=== PATIENT | male | born 1950 | race Two or more races ===

== ENCOUNTER 2024-02-07 11:51 | Emergency (ER) | payer MEDICARE, OTHER ==
[~2024-02-07] VITALS: Ht 162.6 cm; Wt 78.3 kg
[~2024-02-07 11:51] MED LIST: Atorvastatin Calcium PO; Pantoprazole Sodium Sesquihydr PO; TAMS-35 PO
[2024-02-07 13:16] VITALS: BP 159/92; PULSE 77; RESP 16; TEMP 99; O2SAT 94
[2024-02-07] MEDS: HYDROcodone-ACET 5/325MG TAB PO ONE (14:48)
[2024-02-07] MEDS ORDERED: TRAM-626 PO (14:59)
[2024-02-07] MEDS ORDERED: PRED20TA2 PO (14:59)
== END 2024-02-07 15:10 | disposition home or self-care (01) ==
LOC: ER 11:51
DX: M50.121 Cervical disc disorder at C4-C5 level with radiculopathy (principal); M50.122 Cervical disc disorder at C5-C6 level with radiculopathy; M47.816 Spondylosis without myelopathy or radiculopathy, lumbar region; E78.5 Hyperlipidemia, unspecified; Z85.9 Personal history of malignant neoplasm, unspecified; Z79.899 Other long term (current) drug therapy
CPT/HCPCS: 72040; 72100